=== PATIENT | female | born 1975 | race Caucasian/White ===

== ENCOUNTER 2025-02-17 23:52 | Emergency (ER) | payer OTHER | END 2025-02-18 02:41 | disposition home or self-care (01) | LOC: ERS 23:52 | DX: S83.511A Sprain of anterior cruciate ligament of right knee, initial encounter (principal); S39.012A Strain of muscle, fascia and tendon of lower back, initial encounter; S80.11XA Contusion of right lower leg, initial encounter; E11.9 Type 2 diabetes mellitus without complications; W10.9XXA Fall (on) (from) unspecified stairs and steps, initial encounter; Y99.0 Civilian activity done for income or pay | CPT/HCPCS: 99283 ==